=== PATIENT | male | born 1955 | race Caucasian/White ===

== ENCOUNTER 2017-11-08 11:29 | Emergency (ER) | payer OTHER, MEDICARE ==
[~2017-11-08] VITALS: Ht 175.3 cm; Wt 54.4 kg
[~2017-11-08 11:29] MED LIST: AMIODARONE HCL200 M1 PO; AMIODARONE200 MG PO; AUGMENTIN 875 M1 TAB PO; CLOPIDOGREL75 M1 PO; CLOPIDOGREL75 MG PO; ENALAPRIL MALEA20 M1 PO; ENALAPRIL20 MG PO; ENDOCET 2.5-321 EACH PO; FLEXERIL10 MG PO; MELOXICAM7.5 M1 PO; METOPROLOL TART50 M1 PO; METOPROLOL TART50 MG PO; MOBIC7.5 M1 PO; PERCOCET 10-321 EACH PO; PERCOCET 325 MG1 TA2 PO; PERCOCET 5-3251 EACH PO
[2017-11-08 11:32] VITALS: BP 164/86
--- NOTE | 2017-11-08 11:32 | ED UPPER/LOWER EXTREMITY COMPL ---
History of Present Illness General Chief Complaint: Hand or Wrist Injury Stated Complaint: WRIST PAIN Source: patient, old records Exam Limitations: no limitations Vital Signs & Intake/Output Vital Signs & Intake/Output Vital Signs Date Time Temp Pulse Resp B/P B/P Pulse O2 O2 Flow FiO2 Mean Ox Delivery Rate 11/08 1132 98.7 64 18 164/86 98 Room Air Allergies Coded Allergies: amiodarone (HIVES AN INJ ONLY 08/05/15) Reconcile Medications Clopidogrel Bisulfate (Clopidogrel) 75 MG TABLET 1 TAB PO DAILY BLOOD THINNER (Reported) Enalapril Maleate 20 MG TABLET 1 TAB PO 8AM BP (Reported) Meloxicam (Mobic) 7.5 MG TABLET 1 TAB PO DAILY arthritis Meloxicam 7.5 MG TABLET 1 TAB PO DAILY PAIN Methylprednisolone. (Medrol) 4 MG TAB.DS.PK 1 DP PO AD inflammation 6 on day 1 then reduce by one tablet daily until gone Metoprolol Tartrate 50 MG TABLET 1 TAB PO DAILY BP (Reported) Oxycodone HCl/Acetaminophen (Percocet 10-325 MG Tablet) 10 MG-325 MG TABLET 1 TAB PO 4 TIMES/DAY PAIN Oxycodone HCl/Acetaminophen (Percocet 5-325 MG Tablet) 5 MG-325 MG TABLET 1 TAB PO 4XDP PRN PAIN EIGHT...[id number] Oxycodone HCl/Acetaminophen (Percocet 5-325 MG Tablet) 5 MG-325 MG TABLET 1 TAB PO DAILY PRN PAIN Triage Nurses Notes Reviewed? yes Onset: Gradual Duration: constant Timing: recent history Severity: severe Severity Numbers: 8 HPI: Patient is a 62-year-old male who presents emergency room with concerns of a one month history of left wrist pain. Patient denies any mechanism of injury or trauma however he does state he is left hand dominant. It is noted through old records that patient has been evaluated multiple occasions in the past month for his symptoms as stated today he has received x-rays with no concerns or fracture although there is concerns of arthritis see comments below for impression of the x-ray IMPRESSION: No acute fracture or subluxation. There is arthritic change along the radial aspect of the midcarpal joint with soft tissue swelling. Soft tissue calcification or ossification is nonspecific but could be arterial Patient has received 3 opiate prescriptions for his pain which does relief of symptoms. Patient has a wrist splint applied Patient states that his follow-up appointment with Dr. Brandon is not until 10 days from now. Patient denies any new mechanism injury or trauma Patient is requesting pain medications Patient denies any fever chills paresthesia or swelling to the extremities Past History Travel History Traveled to [place] past 21 day No Medical History Any Pertinent Medical History? see below for history Neurological: CVA EENT: NONE Cardiovascular: CAD, myocardial infarction, PACER/DEFIB L CHEST WALL WI,AFIB STENTS Respiratory: NONE Gastrointestinal: NONE Hepatic: NONE Renal: NONE Musculoskeletal: osteoarthritis Psychiatric: NONE Endocrine: NONE, BORDERLINE THRYROID Blood Disorders: NONE Cancer(s): NONE HOTEL DINING ROOM CASHIER/Reproductive: NONE Tetanus Vaccine: 04/03/13 Surgical History Surgical History: non-contributory Psychosocial History What is your primary language Vincentian Tobacco Use: Current Daily Use Daily Tobacco Use Amount/Type: => 5 Cigarettes daily Family History Hx Contributory? No Review of Systems Review of Systems Constitutional: Reports: no symptoms. EENTM: Reports: no symptoms. Respiratory: Reports: no symptoms. Cardiovascular: Reports: no symptoms. Gastrointestinal/Abdominal: Reports: no symptoms. Genitourinary: Reports: no symptoms. Musculoskeletal: Reports: see HPI, joint pain. Skin: Reports: no symptoms. Neurological/Psychological: Reports: no symptoms. Hematologic/Endocrine: Reports: no symptoms. Immunological: Reports: no symptoms. All Other Systems: Reviewed and Negative Physical Exam Physical Exam General Appearance: no apparent distress, alert, comfortable Head: atraumatic Eyes: Bilateral: normal appearance. Ears, Nose, Throat: hearing grossly normal Neck: normal inspection Cardiovascular/Respiratory: no respiratory distress Peripheral Pulses: 2+ radial (L) Neurologic/Tendon: normal sensation, normal motor functions, normal tendon functions, responds to pain, no evidence tendon injury Skin: intact, normal color, warm/dry Diagram Hands Front 1) Normal inspection limited range of motion of wrist flexion and extension Dermatomes intact radial pulse +2 capillary refill less than 2 seconds noted thenar and hyperthenar eminence point tenderness No erythema Progress Differential Diagnosis: compartment syndrome, contusion, dislocation, DVT, fracture, gout, septic arthritis, sprain, tendon injury Plan of Care: Patient is neurovascularly intact to left upper extremities, no concerns of new trauma or merchant warranting of x-rays no concerns of DVT no signs of infection I had a long extensive conization with patient as well as residence to fill his fourth prescription the past month of opiates however due to his pain a short course was administered along with Medrol Dosepak Departure Departure Disposition: HOME OR SELF CARE Condition: Stable Clinical Impression Primary Impression: Left wrist pain Secondary Impressions: Arthritis Referrals: Patient Has No Primary Care Dr (PCP/Family) Additional Instructions: DISCUSSED FOLLOW UP WITH YOUR APPOINTMENT WITH DR BRANDON COMING UP BEGIN ICE OR HEAT FOR YOUR SYMPTOMS CONTINUE USING THE WRIST SPLINT BEGIN THE PRESCRIPTION OF MEDROL DOSE RADHA FOR INFLAMMATION AND PERCOCET FOR PAIN IF SYMPTOMS WORSEN, RETURN TO THE ER PRESCRIPTIONS WAITING AT [facility] Departure Forms: Customer Survey General Discharge Information Prescriptions: Current Visit Scripts Methylprednisolone. (Medrol) 1 DP PO AD #1 DP 6 on day 1 then reduce by one tablet daily until gone Oxycodone HCl/Acetaminophen (Percocet 5-325 MG Tablet) 1 TAB PO DAILY PRN PAIN #6 TAB
[2017-11-08] MEDS ORDERED: PERCOCET 5-3251 EACH PO (11:39)
[2017-11-08] MEDS ORDERED: MEDROL4 M2 PO (11:39)
[2017-11-15] MEDS ORDERED: ENDOCET 7.5-321 EACH PO ×2 (09:49→10:23)
== END 2017-11-08 11:46 ==
LOC: ERH 11:29
DX: M19.032 Primary osteoarthritis, left wrist (principal); M25.532 Pain in left wrist